=== PATIENT | male | born 1985 | race African-American/Black ===

== ENCOUNTER 2020-08-15 06:14 | Inpatient (IN) | payer OTHER, SELFPAY ==
[2020-08-15 06:44] LABS: Actual Bicarbonate (HCO3a) 20.8 mEq/L (22-28); Base Excess (BEa) -10.7 mEq/L (-2.0 to +3.0); CO2 Tension 75.4 mmHg (35.0-45.0); Calcium, Ionized (arterial) 1.15 mmol/L (1.12-1.30); Carboxyhemoglobin (COHb) 0.1 gm% (0.0-3.0); Hemoglobin (Hb) 13.7 g/dL (14.0-18.0); O2 Tension (PaO2), arterial 71.6 mmHg (80.0-100.0); Potassium - ABG Lab 3.3 mmol/L (3.70-5.30); Puncture Site RRA; pH, Arterial 7.06 (7.35-7.45)
[2020-08-15] MEDS ORDERED: Propofol 1,000 MG/100 ML VIAL IV ONE (06:50)
[2020-08-15 06:52] LABS: #Basophils 0.1 10x3/uL (0.0-0.2); #Eosinphils 0.3 10x3/uL (0.0-0.5); #Neutrophils 5.8 10x3/uL (1.5-8.4); %Eosinophils 2.7 % (0.0-6.0); %Lymphocytes 37.5 % (18.0-47.0); %Monocytes 8.5 % (0.0-10.0); %Neutrophils 48.4 % (40.0-75.0); Mean Corpuscular Hemoglobin 24.8 pg (27.0-33.0); Mean Corpuscular Volume 82.7 fl (81.2-95.1); Mean Platelet Volume 10.2 fl (7.4-10.4); Platelet Count 327 10x3/uL (150-450); RBC Distribution Width 14.3 % (11.5-14.5); Red Blood Cell (RBC) Count 5.25 10x6/uL (4.32-5.72); White Blood Cell (WBC) Count 12.1 10x3/uL (3.5-10.5)
[2020-08-15 07:02] LABS: ALT (SGPT) 146 U/L (8-55); AST (SGOT) 143 U/L (5-34); Albumin 3.7 g/dL (3.5-5.0); Alkaline Phosphatase 91 U/L (40-110); Anion Gap 21 mmol/L (10-20); BUN (Urea Nitrogen) 19 mg/dL (8.9-20.6); Bilirubin, Total 0.8 mg/dL (0.2-1.2); Calc. Creatinine Clearance 0 mL/min (70-130); Calcium 8.2 mg/dL (7.8-10.44); Carbon Dioxide 18 mmol/L (22-29); Chloride 107 mmol/L (98-107); Globulin 3.5 g/dL (2.4-3.5); Glucose 287 mg/dL (70-105); Lipase 22 U/L (8-78); Potassium 3.5 mmol/L (3.5-5.1); Protein, Total 7.2 g/dL (6.0-8.3); Sodium 142 mmol/L (136-145)
[2020-08-15 07:04] LABS: Acetaminophen Less than 6.0 mcg/mL (10.0-30.0); Alcohol Less than 10 mg/dL (Less than 10); CK (CPK) 236 U/L (30-200); Magnesium 2.2 mg/dL (1.6-2.6); Salicylate Less than 8.0 mg/dL (15.0-30.0)
[2020-08-15 07:16] LABS: PTT 22.1 sec (22.0-33.0)
[2020-08-15 07:39] LABS: Bilirubin Neg (Negative); Blood, Urine 150 (Negative); Glucose, Urine (Dipstick) 250 mg/dL (Negative); Ketone, Urine Negative (Negative); Leukocyte Negative (Negative); Nitrite Negative (Negative); Protein, Urine (Dipstick) 500 mg/dl (Neg-Trace); Urobilinogen Normal mg/dL (Less than 2)
[2020-08-15 07:40] LABS: Clarity Slightly Cloudy (Clear)
[2020-08-15 07:42] LABS: SARS-CoV-2 NAA Rapid Test Not Detected (NotDetected)
[2020-08-15 07:49] LABS: Amphetamine Not Detected (NotDetected); Barbiturates Screen Not Detected (NotDetected); Benzodiazepine Screen Not Detected (NotDetected); Cocaine Metabolite Screen Not Detected (NotDetected); Methadone Not Detected (NotDetected); Methamphetamine Not Detected (NotDetected); Opiate Screen Not Detected (NotDetected); Oxycodone Screen Not Detected (NotDetected); Phencyclidine (PCP) Not Detected (NotDetected); THC/Cannabinoid Screen Not Detected (NotDetected); Tricyclic Screen Not Detected (NotDetected)
[2020-08-15 07:57] LABS: Bacteria/HPF Rare-Few HPF (None Seen); RBC/HPF 21-50 HPF (0-3); Squamous Epithelial 0-3 HPF (0-3); Transitional Epithelial 0-3 HPF (None Seen)
[2020-08-15] MEDS ORDERED: Lorazepam 2 MG/ML VIAL ONE ×2 (08:11→08:35)
[2020-08-15] MEDS ORDERED: Midazolam HCl 2 mg/2 ml Vial ONE (08:51)
[2020-08-15] MEDS ORDERED: Furosemide 40 MG/4 ML VIAL SLOW IVP SCH (09:00)
[2020-08-15] MEDS ORDERED: Sodium Bicarb 50 MEQ/50 ML VIAL IVP SCH (09:00)
[2020-08-15] MEDS ORDERED: Dextrose 50% Abboject 50 ML SYRINGE SLOW IVP PRN (09:22)
[2020-08-15] MEDS ORDERED: HumaLOG 300 UNITS/3 ML VIAL SC PRN (09:22)
[2020-08-15] MEDS ORDERED: Dextrose 5% in Water 1,000 ML IV PRN (09:22)
[2020-08-15 10:44] LABS: Troponin I 1.508 ng/mL (< 0.028)
[2020-08-15 11:00] LABS: Actual Bicarbonate (HCO3a) 22.7 mEq/L (22-28); CO2 Tension 43.1 mmHg (35.0-45.0); Calcium, Ionized (arterial) 1.13 mmol/L (1.12-1.30); Carboxyhemoglobin (COHb) 0.4 gm% (0.0-3.0); Hemoglobin (Hb) 14.7 g/dL (14.0-18.0); O2 Tension (PaO2), arterial 78.8 mmHg (80.0-100.0); Potassium - ABG Lab 3.8 mmol/L (3.70-5.30); Puncture Site RRA; pH, Arterial 7.34 (7.35-7.45)
[2020-08-15] MEDS ORDERED: Pantoprazole 40 MG VIAL IVP SCH (11:00)
[2020-08-15] MEDS ORDERED: DO NOT USE PRE-EXISTING LYTE PROTOCOL FS SCH (11:15)
[2020-08-15] MEDS ORDERED: Propofol BOLUS 1,000 MG/100 ML VIAL IV PRN (11:15)
[2020-08-15] MEDS ORDERED: Fentanyl BOLUS 250 ML IVPB PRN (11:15)
[2020-08-15] MEDS ORDERED: Propofol 1,000 MG/100 ML VIAL IV PRN (11:15)
[2020-08-15] MEDS ORDERED: Sterile Water 10 ML VIAL FS PRN (11:15)
[2020-08-15] MEDS ORDERED: Morphine 2 MG/ML VIAL SLOW IVP PRN (11:15)
[2020-08-15] MEDS: Vecuronium 10 MG VIAL IV PRN ×3 (11:28→22:13)
[2020-08-15] MEDS ORDERED: Metoprolol Tartrate 5 MG/5 ML VIAL IVP PRN (11:57)
[2020-08-15] MEDS ORDERED: Metoprolol Tartrate 5 MG/5 ML VIAL ONE (12:09)
[2020-08-15] MEDS ORDERED: Rocuronium Bromide 10 MG/ML (10ML VIAL) ONE (12:11)
[2020-08-15] MEDS: Enoxaparin Sodium 40 MG/0.4 ML SYRINGE SC SCH (12:22)
[2020-08-15] MEDS ORDERED: FLU VACC QS2020-21(6MOS UP)/PF 60 MCG/0.5 ML SYRINGE IM ONE (13:30)
[2020-08-15] MEDS: Norepinephrine 8 MG/0.9% NS 250 ML IVPB SCH ×2 (13:53→18:07)
[2020-08-15] MEDS: Fentanyl CADD 100 ML IV SCH (15:42)
[2020-08-15 16:05] LABS: Troponin I 4.105 ng/mL (< 0.028)
[2020-08-15 18:21] LABS: Hemoglobin 14.3 g/dL (13.5-17.5); Mean Corpuscular HGB CONC 29.9 g/dL (32.0-36.0); Mean Corpuscular Hemoglobin 24.5 pg (27.0-33.0); Mean Platelet Volume 9.9 fl (7.4-10.4); Platelet Count 361 10x3/uL (150-450); RBC Distribution Width 14.5 % (11.5-14.5); Red Blood Cell (RBC) Count 5.83 10x6/uL (4.32-5.72); White Blood Cell (WBC) Count 18.2 10x3/uL (3.5-10.5)
[2020-08-15 18:29] LABS: Phosphorus 3.7 mg/dL (2.3-4.7)
[2020-08-15 18:32] LABS: Anion Gap 16 mmol/L (10-20); BUN (Urea Nitrogen) 22 mg/dL (8.9-20.6); Calc. Creatinine Clearance 78 mL/min (70-130); Calcium 8.9 mg/dL (7.8-10.44); Carbon Dioxide 21 mmol/L (22-29); Chloride 109 mmol/L (98-107); Glucose 137 mg/dL (70-105); Potassium 5.2 mmol/L (3.5-5.1); Sodium 141 mmol/L (136-145)
[2020-08-15 18:34] LABS: #Basophils 0.1 10x3/uL (0.0-0.2); #Monocytes 1.2 10x3/uL (0.0-1.1); #Neutrophils 15.9 10x3/uL (1.5-8.4); %Basophils 0.3 % (0.0-2.0); %Eosinophils 0.1 % (0.0-6.0); %Lymphocytes 4.8 % (18.0-47.0); %Monocytes 6.5 % (0.0-10.0); %Neutrophils 87.6 % (40.0-75.0); Platelet Morphology Comment Appears Adequate
[2020-08-15 18:47] LABS: PTT 26.8 sec (22.0-33.0)
[2020-08-15 18:59] LABS: Troponin I 5.101 ng/mL (< 0.028)
[2020-08-15] MEDS: Pantoprazole 40 MG VIAL IVP SCH (21:55)
[2020-08-16] MEDS: Vecuronium 10 MG VIAL IV PRN ×4 (02:27→15:28)
[2020-08-16 02:37] LABS: Hemoglobin 14.3 g/dL (13.5-17.5); Mean Corpuscular HGB CONC 30.6 g/dL (32.0-36.0); Mean Corpuscular Hemoglobin 24.8 pg (27.0-33.0); Mean Corpuscular Volume 81.1 fl (81.2-95.1); Platelet Count 294 10x3/uL (150-450); RBC Distribution Width 14.7 % (11.5-14.5); Red Blood Cell (RBC) Count 5.77 10x6/uL (4.32-5.72); White Blood Cell (WBC) Count 19.9 10x3/uL (3.5-10.5)
[2020-08-16 02:54] LABS: INR-International Normal Ratio 1.1; Phosphorus 3.4 mg/dL (2.3-4.7); Prothrombin Time 11.9 sec (9.5-12.1)
[2020-08-16 02:56] LABS: Anion Gap 13 mmol/L (10-20); BUN (Urea Nitrogen) 23 mg/dL (8.9-20.6); Calc. Creatinine Clearance 100 mL/min (70-130); Calcium 9.2 mg/dL (7.8-10.44); Carbon Dioxide 23 mmol/L (22-29); Chloride 109 mmol/L (98-107); Glucose 119 mg/dL (70-105); Potassium 4.7 mmol/L (3.5-5.1); Sodium 140 mmol/L (136-145)
[2020-08-16 02:58] LABS: MDiff Complete? YES
[2020-08-16 03:02] LABS: Anisocytosis SLIGHT = 6-15 cells (100X) (0-5/hpf); Band 46 % (5-11); Lymphocytes 2 % (21-51); Monocytes 9 % (0-10); Neutrophil 43 % (42-75)
[2020-08-16 03:03] LABS: Large Platelets SLIGHT; Platelet Morphology Comment Appears Adequate
[2020-08-16 06:40] LABS: #Monocytes 1.2 10x3/uL (0.0-1.1); #Neutrophils 18.4 10x3/uL (1.5-8.4); %Basophils 0.2 % (0.0-2.0); %Lymphocytes 3.2 % (18.0-47.0); %Monocytes 5.9 % (0.0-10.0); %Neutrophils 90.2 % (40.0-75.0); Hemoglobin 14.3 g/dL (13.5-17.5); Mean Corpuscular HGB CONC 30.7 g/dL (32.0-36.0); Mean Corpuscular Hemoglobin 24.7 pg (27.0-33.0); Mean Corpuscular Volume 80.6 fl (81.2-95.1); Mean Platelet Volume 9.7 fl (7.4-10.4); Platelet Count 274 10x3/uL (150-450); RBC Distribution Width 14.7 % (11.5-14.5); Red Blood Cell (RBC) Count 5.78 10x6/uL (4.32-5.72); White Blood Cell (WBC) Count 20.4 10x3/uL (3.5-10.5)
[2020-08-16 06:47] LABS: Anion Gap 12 mmol/L (10-20); Globulin 3.9 g/dL (2.4-3.5)
[2020-08-16 07:05] LABS: INR-International Normal Ratio 1.2; PTT 32.5 sec (22.0-33.0); Prothrombin Time 12.6 sec (9.5-12.1)
[2020-08-16] MEDS: Enoxaparin Sodium 40 MG/0.4 ML SYRINGE SC SCH (08:05)
[2020-08-16] MEDS: Pantoprazole 40 MG VIAL IVP SCH ×2 (08:06→21:16)
[2020-08-16 08:22] LABS: ALT (SGPT) 121 U/L (8-55); AST (SGOT) 95 U/L (5-34); Albumin 3.7 g/dL (3.5-5.0); Alkaline Phosphatase 82 U/L (40-110); BUN (Urea Nitrogen) 24 mg/dL (8.9-20.6); Bilirubin, Total 2.3 mg/dL (0.2-1.2); Calc. Creatinine Clearance 105 mL/min (70-130); Calcium 9.2 mg/dL (7.8-10.44); Carbon Dioxide 23 mmol/L (22-29); Chloride 108 mmol/L (98-107); Glucose 128 mg/dL (70-105); Phosphorus 2.5 mg/dL (2.3-4.7); Potassium 4.3 mmol/L (3.5-5.1); Protein, Total 7.5 g/dL (6.0-8.3); Sodium 139 mmol/L (136-145)
[2020-08-16 12:15] LABS: #Neutrophils 17.6 10x3/uL (1.5-8.4); %Basophils 0.2 % (0.0-2.0); %Eosinophils 0.1 % (0.0-6.0); %Lymphocytes 3.1 % (18.0-47.0); %Monocytes 5.2 % (0.0-10.0); %Neutrophils 90.9 % (40.0-75.0); Hemoglobin 14.1 g/dL (13.5-17.5); Mean Corpuscular HGB CONC 31.3 g/dL (32.0-36.0); Mean Corpuscular Hemoglobin 24.9 pg (27.0-33.0); Mean Corpuscular Volume 79.7 fl (81.2-95.1); Platelet Count 262 10x3/uL (150-450); RBC Distribution Width 14.7 % (11.5-14.5); Red Blood Cell (RBC) Count 5.66 10x6/uL (4.32-5.72); White Blood Cell (WBC) Count 19.4 10x3/uL (3.5-10.5)
[2020-08-16 12:35] LABS: INR-International Normal Ratio 1.3; Prothrombin Time 13.3 sec (9.5-12.1)
[2020-08-16 12:40] LABS: Phosphorus 2.6 mg/dL (2.3-4.7)
[2020-08-16 12:42] LABS: Anion Gap 13 mmol/L (10-20); BUN (Urea Nitrogen) 24 mg/dL (8.9-20.6); Calc. Creatinine Clearance 121 mL/min (70-130); Calcium 9.8 mg/dL (7.8-10.44); Carbon Dioxide 22 mmol/L (22-29); Chloride 110 mmol/L (98-107); Glucose 118 mg/dL (70-105); Magnesium 2.1 mg/dL (1.6-2.6); Potassium 4.2 mmol/L (3.5-5.1); Sodium 141 mmol/L (136-145)
[2020-08-16] MEDS: Fentanyl CADD 100 ML IV SCH (13:10)
[2020-08-16 16:25] LABS: Base Excess (BEa) -4.9 mEq/L (-2.0 to +3.0); CO2 Tension 41.9 mmHg (35.0-45.0); Calcium, Ionized (arterial) 1.22 mmol/L (1.12-1.30); Carboxyhemoglobin (COHb) 0.5 gm% (0.0-3.0); Hemoglobin (Hb) 14.5 g/dL (14.0-18.0); O2 Tension (PaO2), arterial 66.2 mmHg (80.0-100.0); Potassium - ABG Lab 3.9 mmol/L (3.70-5.30); Puncture Site LBA; pH, Arterial 7.32 (7.35-7.45)
[2020-08-16 20:00] LABS: Anion Gap 13 mmol/L (10-20); BUN (Urea Nitrogen) 26 mg/dL (8.9-20.6); Calc. Creatinine Clearance 119 mL/min (70-130); Calcium 9.4 mg/dL (7.8-10.44); Carbon Dioxide 23 mmol/L (22-29); Chloride 107 mmol/L (98-107); Glucose 106 mg/dL (70-105); Potassium 4.2 mmol/L (3.5-5.1); Sodium 139 mmol/L (136-145)
[2020-08-16 22:34] LABS: Anion Gap 13 mmol/L (10-20); BUN (Urea Nitrogen) 28 mg/dL (8.9-20.6); Calc. Creatinine Clearance 118 mL/min (70-130); Calcium 9.5 mg/dL (7.8-10.44); Carbon Dioxide 24 mmol/L (22-29); Chloride 107 mmol/L (98-107); Glucose 120 mg/dL (70-105); Potassium 3.9 mmol/L (3.5-5.1); Sodium 140 mmol/L (136-145)
[2020-08-17] MEDS: Lorazepam 2 MG/ML VIAL SLOW IVP PRN ×3 (00:20→08:01)
[2020-08-17] MEDS: Fentanyl CADD 100 ML IV SCH ×2 (00:42→18:32)
[2020-08-17 00:48] LABS: Anion Gap 13 mmol/L (10-20); BUN (Urea Nitrogen) 28 mg/dL (8.9-20.6); Calc. Creatinine Clearance 112 mL/min (70-130); Calcium 9.4 mg/dL (7.8-10.44); Carbon Dioxide 24 mmol/L (22-29); Chloride 107 mmol/L (98-107); Glucose 109 mg/dL (70-105); Potassium 4.2 mmol/L (3.5-5.1); Sodium 140 mmol/L (136-145)
[2020-08-17] MEDS ORDERED: Midazolam HCl 2 mg/2 ml Vial IVP PRN (01:40)
[2020-08-17 04:57] LABS: #Monocytes 1.5 10x3/uL (0.0-1.1); #Neutrophils 18.9 10x3/uL (1.5-8.4); %Basophils 0.2 % (0.0-2.0); %Eosinophils 0.1 % (0.0-6.0); %Lymphocytes 2.6 % (18.0-47.0); %Neutrophils 89.6 % (40.0-75.0); Hemoglobin 13.8 g/dL (13.5-17.5); Mean Corpuscular Volume 80.5 fl (81.2-95.1); Mean Platelet Volume 10.1 fl (7.4-10.4); Platelet Count 300 10x3/uL (150-450); RBC Distribution Width 15.2 % (11.5-14.5); Red Blood Cell (RBC) Count 5.53 10x6/uL (4.32-5.72); White Blood Cell (WBC) Count 21.1 10x3/uL (3.5-10.5)
[2020-08-17 05:09] LABS: Anion Gap 14 mmol/L (10-20); BUN (Urea Nitrogen) 29 mg/dL (8.9-20.6); Calc. Creatinine Clearance 111 mL/min (70-130); Calcium 9.7 mg/dL (7.8-10.44); Carbon Dioxide 23 mmol/L (22-29); Chloride 109 mmol/L (98-107); Glucose 101 mg/dL (70-105); Potassium 4.7 mmol/L (3.5-5.1); Sodium 141 mmol/L (136-145)
[2020-08-17 05:12] LABS: Phosphorus 3.9 mg/dL (2.3-4.7)
[2020-08-17] MEDS ORDERED: Furosemide 40 MG/4 ML VIAL SLOW IVP SCH (08:30)
[2020-08-17] MEDS: Pantoprazole 40 MG VIAL IVP SCH ×2 (08:59→19:29)
[2020-08-17] MEDS: Enoxaparin Sodium 40 MG/0.4 ML SYRINGE SC SCH (08:59)
[2020-08-17] MEDS: Metoprolol Tartrate 5 MG/5 ML VIAL IVP SCH ×3 (09:02→19:29)
[2020-08-17 12:29] LABS: Actual Bicarbonate (HCO3a) 23.2 mEq/L (22-28); Base Excess (BEa) -1.4 mEq/L (-2.0 to +3.0); CO2 Tension 38.5 mmHg (35.0-45.0); Calcium, Ionized (arterial) 1.15 mmol/L (1.12-1.30); Carboxyhemoglobin (COHb) 1.3 gm% (0.0-3.0); Hemoglobin (Hb) 13.4 g/dL (14.0-18.0); O2 Tension (PaO2), arterial 45.6 mmHg (80.0-100.0); Potassium - ABG Lab 4.3 mmol/L (3.70-5.30); Puncture Site LRA
[2020-08-17] MEDS ORDERED: Piperacillin/Tazobactam 3.375 GM in Sodium Chloride 0.9% 100 ML IVPB SCH (13:00)
[2020-08-17] MEDS ORDERED: VANCOMYCIN 2 GRAM/400 ML BAG 2 GM in Premix Bag 1 BAG IVPB SCH (14:00)
[2020-08-17 14:26] LABS: Actual Bicarbonate (HCO3a) 23.7 mEq/L (22-28); CO2 Tension 39.8 mmHg (35.0-45.0); Calcium, Ionized (arterial) 1.15 mmol/L (1.12-1.30); Carboxyhemoglobin (COHb) 0.6 gm% (0.0-3.0); Hemoglobin (Hb) 13.7 g/dL (14.0-18.0); O2 Tension (PaO2), arterial 51.9 mmHg (80.0-100.0); Potassium - ABG Lab 4.2 mmol/L (3.70-5.30); Puncture Site RBA; RapidComm Collect By EA; pH, Arterial 7.39 (7.35-7.45)
[2020-08-17] MEDS: Acetaminophen 650 MG/20.3 ML UDCUP PER TUBE PRN ×2 (15:20→20:46)
[2020-08-17 15:51] LABS: Actual Bicarbonate (HCO3a) 21.8 mEq/L (22-28); Base Excess (BEa) -2.1 mEq/L (-2.0 to +3.0); Calcium, Ionized (arterial) 1.14 mmol/L (1.12-1.30); Carboxyhemoglobin (COHb) 0.5 gm% (0.0-3.0); Hemoglobin (Hb) 13.3 g/dL (14.0-18.0); O2 Tension (PaO2), arterial 71.1 mmHg (80.0-100.0); Puncture Site RBA; RapidComm Collect By EA; pH, Arterial 7.41 (7.35-7.45)
[2020-08-17] MEDS ORDERED: Fentanyl CADD 100 ML ONE (18:31)
[2020-08-17] MEDS: Piperacillin/Tazobactam 3.375 GM in Sodium Chloride 0.9% 100 ML IVPB SCH (19:29)
[2020-08-17] MEDS ORDERED: Acetaminophen 650 MG Suppository PR SCH (21:15)
[2020-08-17] MEDS: Norepinephrine 8 MG/0.9% NS 250 ML IVPB SCH (23:40)
[2020-08-18] MEDS: Piperacillin/Tazobactam 3.375 GM in Sodium Chloride 0.9% 100 ML IVPB SCH ×3 (01:47→18:00)
[2020-08-18] MEDS ORDERED: Vancomycin 1.5 GRAM/300 ML BAG 1.5 GM in Premix Bag 1 BAG IVPB SCH ×2 (02:00→20:00)
[2020-08-18] MEDS: Metoprolol Tartrate 5 MG/5 ML VIAL IVP SCH ×4 (03:30→20:57)
[2020-08-18 03:51] LABS: Actual Bicarbonate (HCO3a) 22.2 mEq/L (22-28); Base Excess (BEa) -2.9 mEq/L (-2.0 to +3.0); CO2 Tension 39.9 mmHg (35.0-45.0); Calcium, Ionized (arterial) 1.16 mmol/L (1.12-1.30); Carboxyhemoglobin (COHb) 0.5 gm% (0.0-3.0); Hemoglobin (Hb) 12.9 g/dL (14.0-18.0); O2 Tension (PaO2), arterial 107.8 mmHg (80.0-100.0); Puncture Site RRA; pH, Arterial 7.36 (7.35-7.45)
[2020-08-18 04:09] LABS: Mean Corpuscular HGB CONC 30.8 g/dL (32.0-36.0); Mean Corpuscular Hemoglobin 24.8 pg (27.0-33.0); Mean Corpuscular Volume 80.7 fl (81.2-95.1); Mean Platelet Volume 10.3 fl (7.4-10.4); Platelet Count 275 10x3/uL (150-450); RBC Distribution Width 15.4 % (11.5-14.5); Red Blood Cell (RBC) Count 4.83 10x6/uL (4.32-5.72); White Blood Cell (WBC) Count 20.3 10x3/uL (3.5-10.5)
[2020-08-18 04:27] LABS: Anion Gap 13 mmol/L (10-20)
[2020-08-18 04:32] LABS: BUN (Urea Nitrogen) 46 mg/dL (8.9-20.6); Calc. Creatinine Clearance 67 mL/min (70-130); Calcium 8.9 mg/dL (7.8-10.44); Carbon Dioxide 26 mmol/L (22-29); Chloride 107 mmol/L (98-107); Glucose 122 mg/dL (70-105); Magnesium 2.1 mg/dL (1.6-2.6); Phosphorus 4.5 mg/dL (2.3-4.7); Sodium 142 mmol/L (136-145)
[2020-08-18 04:43] LABS: Band 19 % (5-11); Lymphocytes 6 % (21-51); Monocytes 5 % (0-10); Neutrophil 69 % (42-75); Reactive Lymphocytes 1 % (0-10)
[2020-08-18 04:45] LABS: Anisocytosis SLIGHT = 6-15 cells (100X) (0-5/hpf); Microcytosis SLIGHT = 6-15 cells (100X) (0-5/hpf)
[2020-08-18 04:46] LABS: Dohle Bodies SLIGHT; Platelet Clumps SLIGHT; Platelet Morphology Comment Appears Adequate
[2020-08-18 04:47] LABS: MDiff Complete? YES; Manual Diff?? YES
[2020-08-18] MEDS: Enoxaparin Sodium 40 MG/0.4 ML SYRINGE SC SCH (10:34)
[2020-08-18] MEDS: Pantoprazole 40 MG VIAL IVP SCH ×2 (10:35→20:58)
[2020-08-18 18:29] LABS: ALV-art Gradient 270.125 mmHg (0-20)
[2020-08-18] MEDS: Heparin 5,000 UNITS/ML VIAL SC SCH (20:57)
[2020-08-19] MEDS: Piperacillin/Tazobactam 3.375 GM in Sodium Chloride 0.9% 100 ML IVPB SCH ×3 (00:49→16:48)
[2020-08-19] MEDS: Metoprolol Tartrate 5 MG/5 ML VIAL IVP SCH ×2 (03:10→10:03)
[2020-08-19] MEDS: Heparin 5,000 UNITS/ML VIAL SC SCH ×3 (10:03→20:39)
[2020-08-19] MEDS: Pantoprazole 40 MG VIAL IVP SCH ×2 (10:04→20:43)
[2020-08-19 13:35] LABS: Vancomycin, Trough 8.3 ug/mL
[2020-08-19] MEDS: Vancomycin 1.5 GRAM/300 ML BAG 1.5 GM in Premix Bag 1 BAG IVPB SCH (15:39)
[2020-08-19] MEDS: Carvedilol 6.25 MG TAB PO SCH (16:48)
[2020-08-19] MEDS: Atorvastatin Calcium 40 MG TAB PO SCH (20:39)
[2020-08-19] MEDS: Acetaminophen 650 MG/20.3 ML UDCUP PER TUBE PRN (20:58)
[2020-08-20] MEDS: Vancomycin 1.5 GRAM/300 ML BAG 1.5 GM in Premix Bag 1 BAG IVPB SCH ×2 (01:13→14:15)
[2020-08-20] MEDS: Piperacillin/Tazobactam 3.375 GM in Sodium Chloride 0.9% 100 ML IVPB SCH ×3 (01:13→18:00)
[2020-08-20 04:46] LABS: #Basophils 0.1 10x3/uL (0.0-0.2); #Eosinphils 0.2 10x3/uL (0.0-0.5); #Monocytes 1.4 10x3/uL (0.0-1.1); #Neutrophils 10.8 10x3/uL (1.5-8.4); %Basophils 0.4 % (0.0-2.0); %Eosinophils 1.6 % (0.0-6.0); %Lymphocytes 7.5 % (18.0-47.0); %Monocytes 10.1 % (0.0-10.0); %Neutrophils 79.7 % (40.0-75.0); Hemoglobin 11.2 g/dL (13.5-17.5); Mean Corpuscular HGB CONC 30.4 g/dL (32.0-36.0); Mean Corpuscular Hemoglobin 24.6 pg (27.0-33.0); Mean Corpuscular Volume 80.9 fl (81.2-95.1); Mean Platelet Volume 9.7 fl (7.4-10.4); Platelet Count 248 10x3/uL (150-450); RBC Distribution Width 15.2 % (11.5-14.5); Red Blood Cell (RBC) Count 4.55 10x6/uL (4.32-5.72); White Blood Cell (WBC) Count 13.5 10x3/uL (3.5-10.5)
[2020-08-20 05:42] LABS: ALT (SGPT) 42 U/L (8-55); AST (SGOT) 25 U/L (5-34); Albumin 3.1 g/dL (3.5-5.0); Alkaline Phosphatase 61 U/L (40-110); Anion Gap 14 mmol/L (10-20); BUN (Urea Nitrogen) 33 mg/dL (8.9-20.6); Bilirubin, Total 1.5 mg/dL (0.2-1.2); Calc. Creatinine Clearance 112 mL/min (70-130); Carbon Dioxide 24 mmol/L (22-29); Chloride 111 mmol/L (98-107); Glucose 102 mg/dL (70-105); Potassium 3.9 mmol/L (3.5-5.1); Protein, Total 7.1 g/dL (6.0-8.3); Sodium 145 mmol/L (136-145)
[2020-08-20] MEDS: Heparin 5,000 UNITS/ML VIAL SC SCH ×3 (08:53→21:20)
[2020-08-20] MEDS: Aspirin Chewable 81 MG TAB PO SCH (08:53)
[2020-08-20] MEDS: Carvedilol 6.25 MG TAB PO SCH ×2 (08:53→18:20)
[2020-08-20] MEDS: Pantoprazole 40 MG VIAL IVP SCH ×2 (08:55→21:20)
[2020-08-20] MEDS: Atorvastatin Calcium 40 MG TAB PO SCH (21:20)
[2020-08-21] MEDS: Piperacillin/Tazobactam 3.375 GM in Sodium Chloride 0.9% 100 ML IVPB SCH ×3 (00:09→18:12)
[2020-08-21 03:01] LABS: Vancomycin, Trough 13.6 ug/mL
[2020-08-21] MEDS: Vancomycin 1.5 GRAM/300 ML BAG 1.5 GM in Premix Bag 1 BAG IVPB SCH (03:31)
[2020-08-21 06:05] LABS: #Basophils 0.1 10x3/uL (0.0-0.2); #Eosinphils 0.3 10x3/uL (0.0-0.5); #Monocytes 1.5 10x3/uL (0.0-1.1); #Neutrophils 8.5 10x3/uL (1.5-8.4); %Basophils 0.4 % (0.0-2.0); %Eosinophils 2.4 % (0.0-6.0); %Monocytes 12.4 % (0.0-10.0); %Neutrophils 71.6 % (40.0-75.0); Hemoglobin 10.5 g/dL (13.5-17.5); Mean Corpuscular HGB CONC 30.6 g/dL (32.0-36.0); Mean Corpuscular Hemoglobin 24.5 pg (27.0-33.0); Mean Platelet Volume 9.8 fl (7.4-10.4); Platelet Count 250 10x3/uL (150-450); RBC Distribution Width 14.7 % (11.5-14.5); Red Blood Cell (RBC) Count 4.29 10x6/uL (4.32-5.72); White Blood Cell (WBC) Count 11.9 10x3/uL (3.5-10.5)
[2020-08-21 06:07] LABS: ALT (SGPT) 61 U/L (8-55); AST (SGOT) 50 U/L (5-34); Alkaline Phosphatase 78 U/L (40-110); Anion Gap 13 mmol/L (10-20); BUN (Urea Nitrogen) 28 mg/dL (8.9-20.6); Calc. Creatinine Clearance 112 mL/min (70-130); Calcium 8.6 mg/dL (7.8-10.44); Carbon Dioxide 24 mmol/L (22-29); Chloride 108 mmol/L (98-107); Globulin 3.7 g/dL (2.4-3.5); Glucose 103 mg/dL (70-105); Potassium 3.4 mmol/L (3.5-5.1); Protein, Total 6.7 g/dL (6.0-8.3); Sodium 142 mmol/L (136-145)
[2020-08-21 09:40] LABS: Hemoglobin A1c 5.5 % (4.0-6.0)
[2020-08-21] MEDS: Aspirin Chewable 81 MG TAB PO SCH (09:45)
[2020-08-21] MEDS: Lisinopril 5 MG TAB PO SCH (09:45)
[2020-08-21] MEDS: Heparin 5,000 UNITS/ML VIAL SC SCH ×3 (09:45→20:42)
[2020-08-21] MEDS: Pantoprazole 40 MG VIAL IVP SCH ×2 (09:45→20:42)
[2020-08-21] MEDS: Carvedilol 6.25 MG TAB PO SCH ×2 (09:46→18:11)
[2020-08-21] MEDS ORDERED: Potassium Chloride 20 MEQ TAB PO SCH ×2 (11:00→15:00)
[2020-08-21] MEDS ORDERED: VANCOMYCIN 1.75 GM in Sodium Chloride 0.9% 500 ML IVPB SCH (15:00)
[2020-08-21] MEDS: VANCOMYCIN 1.75 GM/350 ML BAG 1.75 GM in Premix Bag 1 BAG IVPB SCH (15:38)
[2020-08-21] MEDS: Atorvastatin Calcium 40 MG TAB PO SCH (20:42)
[2020-08-22] MEDS: VANCOMYCIN 1.75 GM/350 ML BAG 1.75 GM in Premix Bag 1 BAG IVPB SCH ×2 (02:42→15:46)
[2020-08-22 05:40] LABS: #Basophils 0.1 10x3/uL (0.0-0.2); #Eosinphils 0.2 10x3/uL (0.0-0.5); #Monocytes 1.4 10x3/uL (0.0-1.1); #Neutrophils 7.7 10x3/uL (1.5-8.4); %Basophils 0.5 % (0.0-2.0); %Eosinophils 1.9 % (0.0-6.0); %Monocytes 12.7 % (0.0-10.0); %Neutrophils 69.6 % (40.0-75.0); Hemoglobin 10.1 g/dL (13.5-17.5); Mean Corpuscular HGB CONC 30.9 g/dL (32.0-36.0); Mean Corpuscular Hemoglobin 24.5 pg (27.0-33.0); Mean Corpuscular Volume 79.2 fl (81.2-95.1); Mean Platelet Volume 10.3 fl (7.4-10.4); Platelet Count 245 10x3/uL (150-450); RBC Distribution Width 14.6 % (11.5-14.5); Red Blood Cell (RBC) Count 4.13 10x6/uL (4.32-5.72); White Blood Cell (WBC) Count 11.1 10x3/uL (3.5-10.5)
[2020-08-22 05:43] LABS: Anion Gap 11 mmol/L (10-20); BUN (Urea Nitrogen) 23 mg/dL (8.9-20.6); Calc. Creatinine Clearance 124 mL/min (70-130); Calcium 8.5 mg/dL (7.8-10.44); Carbon Dioxide 23 mmol/L (22-29); Chloride 109 mmol/L (98-107); Glucose 103 mg/dL (70-105); Potassium 3.8 mmol/L (3.5-5.1); Sodium 139 mmol/L (136-145)
[2020-08-22] MEDS: Aspirin Chewable 81 MG TAB PO SCH (08:24)
[2020-08-22] MEDS: Heparin 5,000 UNITS/ML VIAL SC SCH ×3 (08:24→21:25)
[2020-08-22] MEDS: Carvedilol 6.25 MG TAB PO SCH ×2 (08:24→16:01)
[2020-08-22] MEDS: Pantoprazole 40 MG VIAL IVP SCH ×2 (08:25→21:26)
[2020-08-22] MEDS: Lisinopril 5 MG TAB PO SCH (08:25)
[2020-08-22] MEDS ORDERED: Pantoprazole 40 MG VIAL ONE (20:39)
[2020-08-22] MEDS: Atorvastatin Calcium 40 MG TAB PO SCH (21:25)
[2020-08-23 02:14] LABS: #Basophils 0.1 10x3/uL (0.0-0.2); #Eosinphils 0.2 10x3/uL (0.0-0.5); #Monocytes 1.4 10x3/uL (0.0-1.1); #Neutrophils 9.1 10x3/uL (1.5-8.4); %Basophils 0.6 % (0.0-2.0); %Eosinophils 1.7 % (0.0-6.0); %Monocytes 11.3 % (0.0-10.0); %Neutrophils 71.7 % (40.0-75.0); Hemoglobin 10.6 g/dL (13.5-17.5); Mean Corpuscular HGB CONC 31.4 g/dL (32.0-36.0); Mean Corpuscular Hemoglobin 24.6 pg (27.0-33.0); Mean Corpuscular Volume 78.4 fl (81.2-95.1); Mean Platelet Volume 10.7 fl (7.4-10.4); Platelet Count 254 10x3/uL (150-450); RBC Distribution Width 14.4 % (11.5-14.5); Red Blood Cell (RBC) Count 4.31 10x6/uL (4.32-5.72); White Blood Cell (WBC) Count 12.7 10x3/uL (3.5-10.5)
[2020-08-23 03:35] LABS: Anion Gap 14 mmol/L (10-20); BUN (Urea Nitrogen) 20 mg/dL (8.9-20.6); Calc. Creatinine Clearance 135 mL/min (70-130); Calcium 8.6 mg/dL (7.8-10.44); Carbon Dioxide 19 mmol/L (22-29); Chloride 110 mmol/L (98-107); Glucose 112 mg/dL (70-105); Potassium 3.9 mmol/L (3.5-5.1); Sodium 139 mmol/L (136-145)
[2020-08-23] MEDS: VANCOMYCIN 1.75 GM/350 ML BAG 1.75 GM in Premix Bag 1 BAG IVPB SCH ×2 (06:47→16:46)
[2020-08-23] MEDS: Heparin 5,000 UNITS/ML VIAL SC SCH ×3 (09:49→21:10)
[2020-08-23] MEDS: Aspirin Chewable 81 MG TAB PO SCH (09:49)
[2020-08-23] MEDS: Lisinopril 5 MG TAB PO SCH (09:49)
[2020-08-23] MEDS: Carvedilol 6.25 MG TAB PO SCH ×2 (09:49→16:46)
[2020-08-23] MEDS: Pantoprazole 40 MG VIAL IVP SCH ×2 (09:50→21:10)
[2020-08-23] MEDS: Atorvastatin Calcium 40 MG TAB PO SCH (21:10)
[2020-08-24] MEDS: VANCOMYCIN 1.75 GM/350 ML BAG 1.75 GM in Premix Bag 1 BAG IVPB SCH ×2 (03:34→15:25)
[2020-08-24] MEDS: Aspirin Chewable 81 MG TAB PO SCH (08:25)
[2020-08-24] MEDS: Pantoprazole 40 MG VIAL IVP SCH ×2 (08:25→20:38)
[2020-08-24] MEDS: Carvedilol 6.25 MG TAB PO SCH ×2 (08:25→17:30)
[2020-08-24] MEDS: Lisinopril 10 MG TAB PO SCH (08:25)
[2020-08-24] MEDS: Heparin 5,000 UNITS/ML VIAL SC SCH ×3 (08:25→20:38)
[2020-08-24 14:29] LABS: Vancomycin, Trough 16.6 ug/mL
[2020-08-24] MEDS: Atorvastatin Calcium 40 MG TAB PO SCH (20:38)
[2020-08-25] MEDS: VANCOMYCIN 1.75 GM/350 ML BAG 1.75 GM in Premix Bag 1 BAG IVPB SCH ×3 (02:35→17:47)
[2020-08-25 05:54] LABS: #Basophils 0.1 10x3/uL (0.0-0.2); #Eosinphils 0.2 10x3/uL (0.0-0.5); #Monocytes 1.4 10x3/uL (0.0-1.1); #Neutrophils 8.9 10x3/uL (1.5-8.4); %Basophils 0.7 % (0.0-2.0); %Lymphocytes 11.8 % (18.0-47.0); %Monocytes 11.8 % (0.0-10.0); Hemoglobin 10.2 g/dL (13.5-17.5); Mean Corpuscular HGB CONC 31.3 g/dL (32.0-36.0); Mean Corpuscular Hemoglobin 24.8 pg (27.0-33.0); Mean Corpuscular Volume 79.3 fl (81.2-95.1); Mean Platelet Volume 10.4 fl (7.4-10.4); Platelet Count 303 10x3/uL (150-450); RBC Distribution Width 14.4 % (11.5-14.5); Red Blood Cell (RBC) Count 4.11 10x6/uL (4.32-5.72); White Blood Cell (WBC) Count 12.2 10x3/uL (3.5-10.5)
[2020-08-25 05:57] LABS: Anion Gap 13 mmol/L (10-20); BUN (Urea Nitrogen) 20 mg/dL (8.9-20.6); Calc. Creatinine Clearance 139 mL/min (70-130); Calcium 8.4 mg/dL (7.8-10.44); Carbon Dioxide 22 mmol/L (22-29); Chloride 108 mmol/L (98-107); Glucose 102 mg/dL (70-105); Sodium 139 mmol/L (136-145)
[2020-08-25] MEDS: Carvedilol 6.25 MG TAB PO SCH ×2 (07:17→17:47)
[2020-08-25] MEDS: Aspirin Chewable 81 MG TAB PO SCH (07:17)
[2020-08-25] MEDS: Pantoprazole 40 MG VIAL IVP SCH ×2 (07:17→20:50)
[2020-08-25] MEDS: Heparin 5,000 UNITS/ML VIAL SC SCH (07:18)
[2020-08-25 09:09] LABS: INR-International Normal Ratio 1.1; PTT 24.5 sec (22.0-33.0); Prothrombin Time 11.4 sec (9.5-12.1)
[2020-08-25] MEDS: Lisinopril 10 MG TAB PO SCH (09:26)
[2020-08-25] MEDS ORDERED: Lidocaine 1% (PF) 30 ML VIAL ONE (12:00)
[2020-08-25] MEDS ORDERED: CEFAZOLIN 1 GM VIAL ONE ×2 (12:01→12:07)
[2020-08-25] MEDS ORDERED: Gentamicin 80 MG/2 ML VIAL ONE (12:01)
[2020-08-25] MEDS ORDERED: Propofol 1,000 MG/100 ML VIAL IV ONE (13:36)
[2020-08-25] MEDS ORDERED: PROPOFOL 40 ML ONE (13:36)
[2020-08-25] MEDS ORDERED: Midazolam HCl 2 mg/2 ml Vial ONE (13:36)
[2020-08-25] MEDS ORDERED: Fentanyl 250 MCG/5 ML VIAL ONE (13:36)
[2020-08-25] MEDS ORDERED: PROPOFOL 20 ML ONE (13:38)
[2020-08-25 16:16] LABS: Vancomycin, Trough 11.4 ug/mL
[2020-08-25] MEDS ORDERED: VANCOMYCIN 2 GRAM/400 ML BAG 2 GM in Premix Bag 1 BAG IVPB SCH (18:00)
[2020-08-25] MEDS: Acetaminophen 650 MG/20.3 ML UDCUP PER TUBE PRN (20:35)
[2020-08-25] MEDS: CEFAZOLIN 2 GM in Premix Bag 1 BAG IVPB SCH (20:49)
[2020-08-25] MEDS: Atorvastatin Calcium 40 MG TAB PO SCH (20:50)
[2020-08-26] MEDS: VANCOMYCIN 1.75 GM/350 ML BAG 1.75 GM in Premix Bag 1 BAG IVPB SCH (02:48)
[2020-08-26] MEDS: Acetaminophen 650 MG/20.3 ML UDCUP PER TUBE PRN ×2 (04:11→08:45)
[2020-08-26] MEDS: CEFAZOLIN 2 GM in Premix Bag 1 BAG IVPB SCH (04:36)
[2020-08-26 06:38] VITALS: BMI 33.7
[2020-08-26] MEDS: Aspirin Chewable 81 MG TAB PO SCH (08:41)
[2020-08-26] MEDS: Pantoprazole 40 MG VIAL IVP SCH (08:41)
[2020-08-26] MEDS: Lisinopril 10 MG TAB PO SCH (08:41)
[2020-08-26] MEDS: Carvedilol 6.25 MG TAB PO SCH (08:41)
[2020-08-26 11:53] VITALS: TEMP 98.6
[2020-08-26 13:31] VITALS: BP 127/79
[2020-08-26] MEDS ORDERED: Doxycycline 100 MG CAP PO SCH (21:00)
[2020-08-26] MEDS ORDERED: Minocycline HCl 50 MG CAP PO SCH (21:00)
== END 2020-08-26 12:41 | disposition home or self-care (01) | DRG 226 ==
LOC: CSHERS 06:14 → CSHICU 08:48 → CSHTELE 08-20 13:53
PROVIDERS: ADMIT Internal Medicine; ATTEND Internal Medicine
PROC: 3E053XZ Introduction of Vasopressor into Peripheral Artery, Percutaneous Approach (ICD-10-PCS; principal; 2020-08-15)
PROC: 5A1945Z Respiratory Ventilation, 24-96 Consecutive Hours (ICD-10-PCS; 2020-08-15)
PROC: 02HV33Z Insertion of Infusion Device into Superior Vena Cava, Percutaneous Approach (ICD-10-PCS; 2020-08-15)
PROC: B548ZZA Ultrasonography of Superior Vena Cava, Guidance (ICD-10-PCS; 2020-08-15)
PROC: 0BH17EZ Insertion of Endotracheal Airway into Trachea, Via Natural or Artificial Opening (ICD-10-PCS; 2020-08-15)
PROC: 5A1945Z Respiratory Ventilation, 24-96 Consecutive Hours (ICD-10-PCS; 2020-08-15)
PROC: 0JH608Z Insertion of Defibrillator Generator into Chest Subcutaneous Tissue and Fascia, Open Approach (ICD-10-PCS; 2020-08-25)
PROC: 02HK3KZ Insertion of Defibrillator Lead into Right Ventricle, Percutaneous Approach (ICD-10-PCS; 2020-08-25)
PROC: 02H63KZ Insertion of Defibrillator Lead into Right Atrium, Percutaneous Approach (ICD-10-PCS; 2020-08-25)
DX: I49.01 Ventricular fibrillation (principal); I50.21 Acute systolic (congestive) heart failure; J96.01 Acute respiratory failure with hypoxia; J69.0 Pneumonitis due to inhalation of food and vomit; N17.0 Acute kidney failure with tubular necrosis; E87.2 Acidosis; I13.0 Hypertensive heart and chronic kidney disease with heart failure and stage 1 through stage 4 chronic kidney disease, or unspecified chronic kidney disease; I46.9 Cardiac arrest, cause unspecified; I42.8 Other cardiomyopathies; Z20.822 Contact with and (suspected) exposure to COVID-19; R73.9 Hyperglycemia, unspecified; T68.XXXA Hypothermia, initial encounter; G47.33 Obstructive sleep apnea (adult) (pediatric); E66.9 Obesity, unspecified; Z68.33 Body mass index [BMI] 33.0-33.9, adult; Z91.14 Patient's other noncompliance with medication regimen; R74.01 Elevation of levels of liver transaminase levels; N18.30 Chronic kidney disease, stage 3 unspecified
CPT/HCPCS: 31500; 33249; 36415; 36416; 36556; 36600; 70450; 71045; 80048; 80053; 80202; 80306; 80307; 81003; 81015; 82550; 82553; 82565; 82805; 83036; 83605; 83690; 83735; 83880; 84100; 84443; 84484; 84520; 85025; 85610; 85730; 87040; 87070; 87077; 87081; 87086; 87186; 87205; 93005; 93010; 93306; 94002; 94003; 94660; 94760; 95816; 96374; 96375; C1721; C1898; C9113; J0690; J1580; J1644; J1650; J1940; J2001; J2060; J2250; J2270; J2543; J2704; J3010; J3370; J3490; U0002